=== PATIENT | female | born 2005 | race Two or more races ===

== ENCOUNTER 2024-10-09 15:03 | Emergency (ER) | payer MEDICAID ==
[~2024-10-09] VITALS: Ht 154.9 cm; Wt 56.2 kg
[2024-10-09 16:11] LABS: Urine Bacteria None Seen /hpf (None Seen)
--- NOTE | 2024-10-09 16:39 | ED.PDOC ---
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 LMP was 2 weeks ago and is also experiencing nausea/vomiting. Denies any PMHx as well as abdominal pain, vaginal bleeding, headache, dizziness, diarrhea, fevers, chills. No other symptoms or modifying factors present at this time. pt smokes marijuana Chief Complaint: Urinary Time Seen by MD: 16:00 Reviewed Notes: Medications, Allergies Allergies: Coded Allergies: NO KNOWN ALLERGIES (Unverified , 10/09/24) Information Source: Patient Mode of Arrival: Ambulatory Timing: Days Prehospital treatment: None Severity: Moderate Vaginal Discharge: None Vaginal Lesions: None Vaginal Mass: None Last Consensual [place]: Months Associated Signs and Symptoms: N/V Past Medical History PAST MEDICAL HISTORY: Denies Surgical History: Denies all surgeries TURBINE ASSEMBLER History: No Pertinent TURBINE ASSEMBLER History Family History Family History: Reviewed,noncontributory to illness, No family hx of Cancer, No family hx of DM, No family hx of Heart ramu, No family hx of HTN, No family hx ofKidney ramu, No family hx of Liver ramu, No family hx of Lung ramu, No family hx of Stroke Social History Smoker: Cigarettes Alcohol: Denies ETOH Use Drugs: Marijuana Lives In: Home Constitutional: denies: chills, diaphoresis, fatigue, fever, malaise, sweats, weakness, others EENTM: denies: blurred vision, double vision, ear bleeding, ear discharge, ear drainage, ear pain, ear ringing, eye pain, eye redness, hearing loss, mouth pain, mouth swelling, nasal discharge, nose bleeding, nose congestion, nose pain, photophobia, tearing, throat pain, throat swelling, voice changes, others Respiratory: denies: cough, hemoptysis, orthopnea, SOB at rest, shortness of breath, SOB with excertion, stridor, wheezing, others Cardiovascular: denies: chest pain, dizzy spells, diaphoresis, Dyspnea on exertion, edema, irregular heart beat, left arm pain, lightheadedness, palpitations, PND, syncope, others Gastrointestinal: reports: nausea, vomiting; denies: abdomen distended, abdominal pain, blood streaked bowels, constipated, diarrhea, dysphagia, difficulty swallowing, hematemesis, melena, poor appetite, poor fluid intake, rectal bleeding, rectal pain, others Genitourinary: reports: ; denies: abnormal vagina bleeding, burning, dyspareunia, dysuria, flank pain, frequency, hematuria, incontinence, pain, vagina discharge, urgency, others Neurological: denies: dizziness, fainting, headache, left sided numbness, left sided weakness, numbness, paresthesia, pre-existing deficit, right sided numbness, right sided weakness, seizure, speech problems, tingling, tremors, weakness, others Musculoskeletal: denies: back pain, gout, joint pain, joint swelling, muscle pain, muscle stiffness, neck pain, others Integumetry: denies: bruises, change in color, change in hair/nails, dryness, laceration, lesions, lumps, rash, wounds, others Allergic/Immunocompromised: denies: Difficulty Healing, Frequent Infections, Hives, Itching, others Hematologic/Lymphatic: denies: anemia, blood clots, easy bleeding, easy bruising, swollen glands, others Endocrine: denies: excessive hunger, excessive sweating, excessive thirst, excessive urination, flushing, intolerance to cold, intolerance to heat, unexplained weight gain, unexplained weight loss, others Psychiatric: denies: anxiety, bipolar disorder, depression, hopeless, panic disorder, schizophrenia, sleepless, suicidal, others All Other Systems: Reviewed and Negative Physical Exam General Appearance: No Apparent Distress, Normal HEENT: Normal ENT Inspection, Pharynx Normal, TMs Normal Neck: Full Range of Motion, Non-Tender, Normal, Normal Inspection Respiratory: Chest Non-Tender, Lungs Clear, No Accessory Muscle Use, No Respiratory Distress, Normal Breath Sounds Cardiovascular: No Edema, No JVD, No Murmur, No Gallop, Normal Peripheral Pulses, Regular Rate/Rhythm Breast Exam: Deferred Gastrointestinal: No Organomegaly, Non Tender, No Pulsatile Mass, Normal Bowel Sounds, Soft Genitalia: Deferred Pelvic: Deferred Rectal: Deferred Extremities: No calf tenderness, Normal capillary refill, Normal inspection, Normal range of motion, Non-tender, No pedal edema Musculoskeletal : Apperance: Normal Neurologic: Alert, environmental compliance inspector II-XII nml as Tested, No Motor Deficits, Normal Affect, Normal Mood, No Sensory Deficits Cerebellar Function: Normal Reflexes: Normal Skin: Dry, Normal Color, Warm Lymphatic: No Adenopathy Was a procedure done? Was a procedure done?: No Differential Diagnosis (TURBINE ASSEMBLER) Vaginal Bleeding: - Complete, - Incomplete, - Inevitable, - Missed, - Threatened, Dysmenorrhea, Ectopic Comments CHS, viral syndrome, gastroenteritis, idaeus X-Ray, Labs, Meds, VS Vital Signs Date Time Temp Pulse Resp B/P (MAP) Pulse Ox O2 Delivery O2 Flow Rate FiO2 10/09/24 15:04 98.7 100 20 118/68 (85) 98 98.7 Lab Test 10/09/24 16:10 10/09/24 15:50 Range/Units Urine Test Negative Negative Urine Color Dark-yellow Yellow Urine Clarity Ex.turbid Clear Urine pH 6.5 5.0-9.0 Urine Specific [place] 1.027 1.001-1.035 Urine Protein 3+ H Negative Urine Ketones 1+ H Negative Urine Blood 3+ H Negative /uL Urine Nitrite 2+ H Negative Urine Bilirubin 2+ H Negative Urine Urobilinogen 6 Negative mg/dL Urine Leukocyte Esterase 3+ Negative /uL Urine RBC 879 0 - 4 /hpf Urine WBC Clumps Present None Seen /hpf Urine Microscopic WBC 1466 H 0-5 /HPF Urine Squamous Epithelial Cells Mod <5 /hpf Urine Bacteria None seen None Seen /hpf Urine Mucus Moderate None Seen Urine Glucose Normal Normal mg/dL Time of 1ST Reevaluation: 16:30 Reevaluation 1ST: Unchanged Patient Education/Counseling: Diagnosis, Treatment, Prognosis Family Education/Counseling: No Family Present Departure 1 Departure Time of Disposition: 17:38 Impression: Primary Impression: Nausea Additional Impressions: UTI (urinary tract infection) Marijuana abuse Disposition: 01 HOME / SELF CARE / HOMELESS Condition: Good e-Prescriptions Ondansetron Odt 4MG Tab (ZOFRAN PO) 4 Mg Tb 4 MG PO Q6HP PRN for 3 Days, #12 TAB ODT TAB-DISSOLVE IN MOUTH, THEN SWALLOW Prov: NICOLLE POSADA MD 10/09/24 Cephalexin Monohydrate (Cephalexin) 500 Mg Tab 1 TAB PO QID, #40 TAB Prov: NICOLLE POSADA MD 10/09/24 Discharged With: Self, Relative (Mother) Critical Care Note Critical Care Time?: No Stability Stability form required: No I personally scribed for NICOLLE POSADA MD ([email or web address]) on 10/09/24 at 16:39. Electronically submitted by Veronica [email or web address]). NICOLLE POSADA MD October 09, 2024 16:39
[2024-10-09 16:54] LABS: Urine Blood 3+ /uL (Negative); Urine Clarity Ex.Turbid (Clear); Urine Color Dark-Yellow (Yellow); Urine Mucus MODERATE (None Seen); Urine Protein, UAD 3+ (Negative); Urine Specific Gravity 1.027 (1.001-1.035); Urine Squamous Epithelial Cell MOD /hpf (<5); Urine Urobilinogen 6 mg/dL (Negative); Urine WBC 1466 /HPF (0-5); Urine WBC Clumps PRESENT /hpf (None Seen); Urine pH 6.5 (5.0-9.0)
[2024-10-09] MEDS ORDERED: ZOFR4T PO (17:39)
[2024-10-09] MEDS ORDERED: CEPH500T PO (17:39)
[2024-10-09] MEDS: CEPHALEXIN 250 MG CAP PO ONE (20:09)
[2024-10-09 20:13] VITALS: BP 117/71; PULSE 55; RESP 18; TEMP 98.2; O2SAT 100
== END 2024-10-09 20:21 | disposition home or self-care (01) ==
LOC: ER 15:09
DX: N39.0 Urinary tract infection, site not specified (principal); R11.2 Nausea with vomiting, unspecified; F12.10 Cannabis abuse, uncomplicated; F17.210 Nicotine dependence, cigarettes, uncomplicated
CPT/HCPCS: 81001; 81025

== ENCOUNTER 2025-01-02 13:51 | Inpatient (IN) | payer MEDICAID ==
[~2025-01-02] VITALS: Ht 149.9 cm; Wt 50.0 kg
[~2025-01-02 13:51] MED LIST: CEPH500T PO; ZOFR4T PO
--- NOTE | 2025-01-02 14:12 | ED.PDOC ---
SOB-HPI HPI Comments 19-year-old female presents here with shortness of breath. She states this has been occurring for some time but occurring more frequently recently. She states that this morning she woke up 8:00 a.m. and 10 minutes later she began to have this shortness of breath. She states she is unable to take a deep breath and associated chest discomfort with radiates to the right arm. She states it does go away by itself she has not taken any medication. She states a year ago she was diagnosed with hyperthyroidism but then she went to another provider recently and they told her she does not have hypothyroidism. She does state she has lost 40 lb in the last several months. She does have a known history of panic attacks but states this does not feel like panic attack. She reports positive palpitations. She states she has been drinking plenty of water. Denies any recent cough cold runny nose fever or chills. Patient declines any unilateral leg swelling. She is not on oral contraceptive pills. She has not had any recent bedrest long flights. She does note that she drives [address]. Chief Complaint: Shortness of Breath Time Seen by MD: 13:57 Reviewed notes: Medications, Allergies Information Source: Patient Mode of Arrival: Ambulatory Brought in by: self Past Medical History PAST MEDICAL HISTORY: Thyroid Surgical History: Denies all surgeries ROAD SUPERVISOR OF ENGINES History: No Pertinent ROAD SUPERVISOR OF ENGINES History Family History Family History: Reviewed,noncontributory to illness, No family hx of Cancer, No family hx of DM, No family hx of Heart ramu, No family hx of HTN, No family hx ofKidney ramu, No family hx of Liver ramu, No family hx of Lung ramu, No family hx of Stroke Social History Smoker: Cigarettes Alcohol: Denies ETOH Use Drugs: Marijuana Lives In: Home Constitutional: denies: chills, diaphoresis, fatigue, fever, malaise, sweats, weakness, others EENTM: denies: blurred vision, double vision, ear bleeding, ear discharge, ear drainage, ear pain, ear ringing, eye pain, eye redness, hearing loss, mouth pain, mouth swelling, nasal discharge, nose bleeding, nose congestion, nose pain, photophobia, tearing, throat pain, throat swelling, voice changes, others Respiratory: reports: shortness of breath; denies: cough, hemoptysis, orthopnea, SOB at rest, SOB with excertion, stridor, wheezing, others Cardiovascular: reports: palpitations; denies: chest pain, dizzy spells, diaphoresis, Dyspnea on exertion, edema, irregular heart beat, left arm pain, lightheadedness, PND, syncope, others Gastrointestinal: denies: abdomen distended, abdominal pain, blood streaked bowels, constipated, diarrhea, dysphagia, difficulty swallowing, hematemesis, melena, nausea, poor appetite, poor fluid intake, rectal bleeding, rectal pain, vomiting, others Genitourinary: denies: abnormal vagina bleeding, burning, dyspareunia, dysuria, flank pain, frequency, hematuria, incontinence, pain, , vagina discharge, urgency, others Neurological: denies: dizziness, fainting, headache, left sided numbness, left sided weakness, numbness, paresthesia, pre-existing deficit, right sided numbness, right sided weakness, seizure, speech problems, tingling, tremors, weakness, others Musculoskeletal: denies: back pain, gout, joint pain, joint swelling, muscle pain, muscle stiffness, neck pain, others Integumetry: denies: bruises, change in color, change in hair/nails, dryness, laceration, lesions, lumps, rash, wounds, others Allergic/Immunocompromised: denies: Difficulty Healing, Frequent Infections, Hives, Itching, others Hematologic/Lymphatic: denies: anemia, blood clots, easy bleeding, easy bruising, swollen glands, others Endocrine: denies: excessive hunger, excessive sweating, excessive thirst, excessive urination, flushing, intolerance to cold, intolerance to heat, unexplained weight gain, unexplained weight loss, others Psychiatric: denies: anxiety, bipolar disorder, depression, hopeless, panic disorder, schizophrenia, sleepless, suicidal, others All Other Systems: Reviewed and Negative Physical Exam General Appearance: Mild Distress, Normal, Thin, Other (Appears anxious) HEENT: Normal ENT Inspection, Pharynx Normal, TMs Normal Neck: Full Range of Motion, Non-Tender, Normal, Normal Inspection Respiratory: Chest Non-Tender, Lungs Clear, No Accessory Muscle Use, No Respiratory Distress, Normal Breath Sounds Cardiovascular: No Edema, No JVD, No Murmur, No Gallop, Normal Peripheral Pulses, Regular Rate/Rhythm Breast Exam: Deferred Gastrointestinal: No Organomegaly, Non Tender, No Pulsatile Mass, Normal Bowel Sounds, Soft Genitalia: Deferred Pelvic: Deferred Rectal: Deferred Extremities: No calf tenderness, Normal capillary refill, Normal inspection, Normal range of motion, Non-tender, No pedal edema Musculoskeletal : Apperance: Normal Neurologic: Alert, blow machine tender starch spraying II-XII nml as Tested, No Motor Deficits, Normal Affect, Normal Mood, No Sensory Deficits Cerebellar Function: Normal Reflexes: Normal Skin: Dry, Normal Color, Warm Lymphatic: No Adenopathy EKG EKG : Comments Sinus rhythm rate of [address] changes Was a procedure done? Was a procedure done?: No Differential Dx Differential Diagnosis: Anxiety, Dysrhythmia, Panic Attack, PSVT, Pulmonary Embolism, URI X-Ray, Labs, Meds, VS Vital Signs Date Time Temp Pulse Resp B/P (MAP) Pulse Ox O2 Delivery O2 Flow Rate FiO2 01/02/25 14:10 61 01/02/25 13:53 97.5 60 18 117/70 100 97.5 Lab Test 01/02/25 15:50 01/02/25 14:48 Range/Units Troponin I High Sensitivity < 3 L < 3 L </=34 ng/L White Blood Count 6.9 4.4-10.8 10^3/uL Red Blood Count 4.42 4.0-5.20 10^6/uL Hemoglobin 14.0 12.2-16.2 g/dL Hematocrit 39.4 36.0-46.0 % Mean Corpuscular Volume 89.2 80.0-100.0 fL Mean Corpuscular Hemoglobin 31.6 28.0-32.0 pg Mean Corpuscular Hemoglobin Concent 35.4 32.0-36.0 g/dL Red Cell Distribution Width 14.1 11.8-14.3 % Platelet Count 314 140-450 10^3/uL Mean Platelet Volume 7.4 6.9-10.8 fL Neutrophils (%) (Auto) 52.1 37.0-80.0 % Lymphocytes (%) (Auto) 38.0 10.0-50.0 % Monocytes (%) (Auto) 8.4 0.0-12.0 % Eosinophils (%) (Auto) 1.1 0.0-7.0 % Basophils (%) (Auto) 0.4 0.0-2.0 % Neutrophils # (Auto) 3.6 1.6-8.6 10 ^3/uL Lymphocytes # (Auto) 2.6 0.4-5.4 10 ^3/uL Monocytes # (Auto) 0.6 0-1.3 10 ^3/uL Eosinophils # (Auto) 0.1 0-0.8 10 ^3/uL Basophils # (Auto) 0 0-0.2 10 ^3/uL Nucleated Red Blood Cells 0.1 % D-Dimer, Quantitative < 0.19 0.0-0.49 mg/L FEU Sodium Level 139 136-145 mmol/L Potassium Level 3.8 3.5-5.1 mmol/L Chloride Level 104 98-107 mmol/L Carbon Dioxide Level 25 20-31 mmol/L Anion Gap 10 5-15 Blood Urea Nitrogen 8 L 9-23 mg/dL Creatinine 0.88 0.550-1.02 mg/dL Glomerular Filtration Rate Calc 96 >90 mL/min BUN/Creatinine Ratio 9.1 L 10.0-20.0 Serum Glucose 88 74-106 mg/dL Calcium Level 9.6 8.7-10.4 mg/dL Thyroid Stimulating Hormone (TSH) 1.43 0.55-4.78 uIU/mL Free Thyroxine (T4) Calculated Pending [place] [id number] Ph: [phone] DIAGNOSTIC IMAGING Diagnostic Imaging Report : [id number] Signed PATIENT: GERARDO TOBARACCT: [id number] UNIT: [id number] : 2005 LOC: ER ROOM / BED: / AGE / SEX: 19 / F ADM STATUS: REG ER SERVICE 1417 ORDERING PHYSICIAN: JOSEFA MEIER MD PROCEDURE(s): CXR2 - CHEST TWO VIEWS ROUTINE REASON: cp ORDER NUMBER(s): [id number], ACCESSION NUMBER(s): [id number] XY CHEST TWO VIEWS ROUTINE CLINICAL HISTORY: cp COMPARISON: None TECHNIQUE: Frontal and lateral view of the chest was obtained FINDINGS: Lines and Tubes: None Lungs: No focal consolidation. Pleura: No effusion. No pneumothorax. Cardiomediastinal contours: Unremarkable Bones: No acute osseous abnormality. IMPRESSION: No acute cardiopulmonary disease. ATED BY: SHELLEY BARNARD DO DICTATED DATE/TIME: 01/02/25 1506 SIGNED BY: SHELLEY BARNARD DO SIGNED DATE/TIME: 01/02/25 1506 19-year-old female presents here with shortness of breath that occurs proximally 10 minutes upon awakening. At this time chest x-ray has been done which is unremarkable. Considered possible PE however I have do have a low suspicion and her D-dimer is negative. She is saturating well today. Considered possible anxiety. At this time no evidence of pneumonia or pneumothorax. Blood work has been done which is normal CBC BMP and troponin. D-dimer also negative. TSH is within normal limits. Free T4 is pending. Additionally I re-evaluated the patient and at that time she states she has had a 40 lb weight loss and it is because she has not been able to eat or drank. In questioning her more she states the vomiting happens upon wakening in the morning. She has follow up with her primary care physician and has seen a PA/MP there and she advised they only keep checking her thyroid level. I offered her a CT of the brain with contrast as well as a CT abdomen pelvis for evaluation but she prefers to have it done outpatient. On discharge paperwork I have written a note to provider fo additional testing be done outpatient. Advised patient if she is unable to get care in timely manner to please return back to the ER. Patient agreeable.. I have sent a prescription for Zofran to her pharmacy. Time of 1ST Reevaluation: 14:30 Reevaluation 1ST: Unchanged Patient Education/Counseling: Diagnosis, Treatment Family Education/Counseling: No Family Present SEPSIS Sepsis Screen Date sepsis recognized/suspect: Jan 02, 2025 Time Sepsis recognized/suspect: 1359 Recent Procedure: No On Antibiotic Therapy: No Respiratory Rate >20: No Heart Rate >90: No Temp<36 C (96.8 F) or >38.3 C: No SBP <90 or MAP <65 mmHG: No New Acute Mental Status Change: No Is the patient on CPAP, BIPAP,: No Physician Orders Chest Two Views Routine (01/02/25 14:17) Electrocardigram (01/02/25 15:17) Free T4 (Free Thyroxine) (01/02/25 14:19) Test, Urine (01/02/25 17:00) Head Contrast Only (01/02/25 17:01) Ct Ab Pel With Iv Con Only (01/02/25 17:01) Vital Signs Date Time Temp Pulse Resp B/P (MAP) Pulse Ox O2 Delivery O2 Flow Rate FiO2 01/02/25 14:10 61 01/02/25 13:53 97.5 60 18 117/70 100 97.5 Laboratory Tests Test 01/02/25 14:48 White Blood Count 6.9 10^3/uL (4.4-10.8) Departure 1 Departure Time of Disposition: 17:08 Impression: Primary Impression: Shortness of breath Additional Impressions: Weight loss, abnormal Vomiting Qualified Codes: R11.2 - Nausea with vomiting, unspecified Disposition: HOME / SELF CARE / HOMELESS Condition: Fair Additional Instructions: Please follow up with your primary care physician. You reported today that you are having vomiting 1st thing in the morning when you wake up, this is very concerning for a brain mass. Please request a CT with IV contrast or MRI of the brain. Additionally you reported 40 lb weight loss in the last 4 months, recommend Gastroenterology evaluation potentially with CT versus endoscopy/colonoscopy. If you are unable to get the care that you need, please return back to the ER. Additionally please return back to ER if your symptoms worsen or persist. e-Prescriptions Ondansetron Odt 4MG Tab (ZOFRAN PO) 4 Mg Tb 4 MG PO Q6HP PRN, #20 TAB ODT TAB-DISSOLVE IN MOUTH, THEN SWALLOW Prov: JOSEFA MEIER MD 01/02/25 Critical Care Note Critical Care Time?: No Stability Stability form required: No Heart Score Heart Score: Heart Score Response (Comments) Value History Slightly Suspicious 0 EKG Normal 0 Age <45 0 Risk Factors No known risk factors 0 Troponin Normal limit 0 Total 0 I personally scribed for JOSEFA MEIER MD ([email or web address]) on 01/02/25 at 14:30. Electronically submitted by Elver Monahan ([email or web address]). I personally scribed for JOSEFA MEIER MD ([email or web address]) on 01/02/25 at 14:53. Electronically submitted by Elver Monahan ([facility]). I personally scribed for JOSEFA MEIER MD ([email or web address]) on 01/02/25 at 15:12. Electronically submitted by Elver Monahan ([facility]). I personally scribed for JOSEFA MEIER MD ([email or web address]) on 01/02/25 at 15:19. Electronically submitted by Elver Monahan ([facility]). JOSEFA MEIER MD Jan 02, 2025 14:12
--- NOTE | 2025-01-02 14:19 | ECG ---
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
--- NOTE | 2025-01-02 15:08 | DVH ---
XY CHEST TWO VIEWS ROUTINE CLINICAL HISTORY: cp COMPARISON: None TECHNIQUE: Frontal and lateral view of the chest was obtained FINDINGS: Lines and Tubes: None Lungs: No focal consolidation. Pleura: No effusion. No pneumothorax. Cardiomediastinal contours: Unremarkable Bones: No acute osseous abnormality. IMPRESSION: No acute cardiopulmonary disease.
[2025-01-02 15:18] LABS: Hematocrit 39.4 % (36.0-46.0); Hemoglobin 14.0 g/dL (12.2-16.2); Mean Corpuscular Hemoglobin 31.6 pg (28.0-32.0); Mean Corpuscular Volume 89.2 fL (80.0-100.0); Nucleated Red Blood Cells % 0.1 %
[2025-01-02 15:20] LABS: Chloride 104 mmol/L (98-107); Potassium 3.8 mmol/L (3.5-5.1); Sodium 139 mmol/L (136-145)
[2025-01-02 15:21] LABS: Anion Gap 10 (5-15); Calcium 9.6 mg/dL (8.7-10.4); Carbon Dioxide 25 mmol/L (20-31)
[2025-01-02 15:26] LABS: BUN/Creatinine Ratio 9.1 (10.0-20.0); Blood Urea Nitrogen 8 mg/dL (9-23); Glucose 88 mg/dL (74-106)
[2025-01-02] MEDS ORDERED: ZOFR4T PO (17:00)
--- NOTE | 2025-01-02 20:25 | ED.PDOC ---
Altered Mental Status Chief Complaint: Shortness of Breath Time Seen by MD: 20:20 Allergies: Coded Allergies: NO KNOWN ALLERGIES (Unverified , 10/09/24) Home Meds Active Scripts Ondansetron Odt 4MG Tab (ZOFRAN PO) 4 Mg Tb, 4 MG PO Q6HP PRN, #20 TAB ODT TAB-DISSOLVE IN MOUTH, THEN SWALLOW Prov:JOSEFA MEIER MD 01/02/25 Ondansetron Odt 4MG Tab (ZOFRAN PO) 4 Mg Tb, 4 MG PO Q6HP PRN for 3 Days, #12 TAB ODT TAB-DISSOLVE IN MOUTH, THEN SWALLOW Prov:NICOLLE POSADA MD 10/09/24 Cephalexin Monohydrate (Cephalexin) 500 Mg Tab, 1 TAB PO QID, #40 TAB Prov:NICOLLE POSADA MD 10/09/24 Mode of Arrival: Ambulatory Past Medical History PAST MEDICAL HISTORY: Thyroid Surgical History: Denies all surgeries SENIOR RECRUITER History: No Pertinent SENIOR RECRUITER History Family History Family History: Reviewed,noncontributory to illness, No family hx of Cancer, No family hx of DM, No family hx of Heart ramu, No family hx of HTN, No family hx ofKidney ramu, No family hx of Liver ramu, No family hx of Lung ramu, No family hx of Stroke Social History Smoker: Cigarettes Alcohol: Denies ETOH Use Drugs: Marijuana Lives In: Home Physical Exam General Appearance: No Apparent Distress, Normal HEENT: Normal ENT Inspection, Pharynx Normal, TMs Normal Neck: Full Range of Motion, Non-Tender, Normal, Normal Inspection Respiratory: Chest Non-Tender, Lungs Clear, No Accessory Muscle Use, No Respiratory Distress, Normal Breath Sounds Cardiovascular: No Edema, No JVD, No Murmur, No Gallop, Normal Peripheral Pulses, Regular Rate/Rhythm Breast Exam: Deferred Gastrointestinal: No Organomegaly, Non Tender, No Pulsatile Mass, Normal Bowel Sounds, Soft Genitalia: Deferred Pelvic: Deferred Rectal: Deferred Extremities: No calf tenderness, Normal capillary refill, Normal inspection, Normal range of motion, Non-tender, No pedal edema Musculoskeletal : Apperance: Normal Neurologic: Alert, card maker II-XII nml as Tested, No Motor Deficits, Normal Affect, Normal Mood, No Sensory Deficits Cerebellar Function: Normal Reflexes: Normal Skin: Dry, Normal Color, Warm Lymphatic: No Adenopathy Was a procedure done? Was a procedure done?: No Differential Diagnosis (ALOC) Differential Diagnosis: Mass Lesion Other Differential Diagnosis cephalgia X-Ray, Labs, Meds, VS Vital Signs Date Time Temp Pulse Resp B/P (MAP) Pulse Ox O2 Delivery O2 Flow Rate FiO2 01/02/25 18:42 98.1 79 16 116/76 (89) 100 98.1 01/02/25 14:10 61 01/02/25 13:53 97.5 60 18 117/70 100 97.5 Lab Test 01/02/25 17:40 01/02/25 15:50 01/02/25 14:48 Range/Units Urine Test Negative Negative Troponin I High Sensitivity < 3 L < 3 L </=34 ng/L White Blood Count 6.9 4.4-10.8 10^3/uL Red Blood Count 4.42 4.0-5.20 10^6/uL Hemoglobin 14.0 12.2-16.2 g/dL Hematocrit 39.4 36.0-46.0 % Mean Corpuscular Volume 89.2 80.0-100.0 fL Mean Corpuscular Hemoglobin 31.6 28.0-32.0 pg Mean Corpuscular Hemoglobin Concent 35.4 32.0-36.0 g/dL Red Cell Distribution Width 14.1 11.8-14.3 % Platelet Count 314 140-450 10^3/uL Mean Platelet Volume 7.4 6.9-10.8 fL Neutrophils (%) (Auto) 52.1 37.0-80.0 % Lymphocytes (%) (Auto) 38.0 10.0-50.0 % Monocytes (%) (Auto) 8.4 0.0-12.0 % Eosinophils (%) (Auto) 1.1 0.0-7.0 % Basophils (%) (Auto) 0.4 0.0-2.0 % Neutrophils # (Auto) 3.6 1.6-8.6 10 ^3/uL Lymphocytes # (Auto) 2.6 0.4-5.4 10 ^3/uL Monocytes # (Auto) 0.6 0-1.3 10 ^3/uL Eosinophils # (Auto) 0.1 0-0.8 10 ^3/uL Basophils # (Auto) 0 0-0.2 10 ^3/uL Nucleated Red Blood Cells 0.1 % D-Dimer, Quantitative < 0.19 0.0-0.49 mg/L FEU Sodium Level 139 136-145 mmol/L Potassium Level 3.8 3.5-5.1 mmol/L Chloride Level 104 98-107 mmol/L Carbon Dioxide Level 25 20-31 mmol/L Anion Gap 10 5-15 Blood Urea Nitrogen 8 L 9-23 mg/dL Creatinine 0.88 0.550-1.02 mg/dL Glomerular Filtration Rate Calc 96 >90 mL/min BUN/Creatinine Ratio 9.1 L 10.0-20.0 Serum Glucose 88 74-106 mg/dL Calcium Level 9.6 8.7-10.4 mg/dL Thyroid Stimulating Hormone (TSH) 1.43 0.55-4.78 uIU/mL Free Thyroxine (T4) Calculated Pending Time of 1ST Reevaluation: 17:08 Reevaluation 1ST: Unchanged Patient Education/Counseling: Diagnosis, Treatment, Prognosis, Need For Follow Up Family Education/Counseling: Diagnosis, Treatment, Prognosis, Need For Follow Up Comments Patient reported to Dr. Meier that she has been losing weight having morning headaches. Dr. Perdomo was concerned about a malignancy in her order additional CAT scans. However there is a significant delay in getting these tests done. In the meantime patient continues to remain in a stable condition without any new symptoms. Dr. Meier has spoke to her about admitting her for further workups which patient declined initially. Now patient is wanting to be admitted for further workups for the progressive weight loss and new onset of headaches SEPSIS Sepsis Screen Date sepsis recognized/suspect: Jan 02, 2025 Time Sepsis recognized/suspect: 1359 Recent Procedure: No On Antibiotic Therapy: No Respiratory Rate >20: No Heart Rate >90: No Temp<36 C (96.8 F) or >38.3 C: No SBP <90 or MAP <65 mmHG: No New Acute Mental Status Change: No Is the patient on CPAP, BIPAP,: No Physician Orders Chest Two Views Routine (01/02/25 14:17) Electrocardigram (01/02/25 15:17) Free T4 (Free Thyroxine) (01/02/25 14:19) Head Contrast Only (01/02/25 17:01) Ct Ab Pel With Iv Con Only (01/02/25 17:01) Vital Signs Date Time Temp Pulse Resp B/P (MAP) Pulse Ox O2 Delivery O2 Flow Rate FiO2 01/02/25 18:42 98.1 79 16 116/76 (89) 100 98.1 01/02/25 14:10 61 01/02/25 13:53 97.5 60 18 117/70 100 97.5 Laboratory Tests Test 01/02/25 14:48 White Blood Count 6.9 10^3/uL (4.4-10.8) Departure 1 Departure Time of Disposition: 17:08 Impression: Primary Impression: Shortness of breath Additional Impressions: Vomiting Qualified Codes: R11.2 - Nausea with vomiting, unspecified Weight loss, abnormal Disposition: ADMITTED INPATIENT Admit to: Med Surg Condition: Stable Additional Instructions: Please follow up with your primary care physician. You reported today that you are having vomiting 1st thing in the morning when you wake up, this is very concerning for a brain mass. Please request a CT with IV contrast or MRI of the brain. Additionally you reported 40 lb weight loss in the last 4 months, melissa mmend Gastroenterology evaluation potentially with CT versus endoscopy/colonoscopy. If you are unable to get the care that you need, please return back to the ER. Additionally please return back to ER if your symptoms worsen or persist. e-Prescriptions Ondansetron Odt 4MG Tab (ZOFRAN PO) 4 Mg Tb 4 MG PO Q6HP PRN, #20 TAB ODT TAB-DISSOLVE IN MOUTH, THEN SWALLOW Prov: JOSEFA MEIER MD 01/02/25 Critical Care Note Critical Care Time?: Yes (55 min-critical care time only) Critical care comment: Due to concerns for patients condition deteriorating, the care required my highest level of attention and readiness to intervene. I assessed the patient, reviewed the medical records, ordered the appropriate tests and treatments, then reassessed for results and responsiveness. I communicated with medical personnel and consultants and formulated a plan of care. Total critical care time excludes any procedures Stability Stability form required: NICOLLE Mosqueda MD Jan 02, 2025 20:25
[2025-01-02] MEDS ORDERED: ACETAMINOPHEN 325 MG TAB PO PRN (21:45)
[2025-01-02] MEDS ORDERED: HYDROcodone-ACET 5/325MG TAB PO PRN (21:45)
[2025-01-02] MEDS ORDERED: ONDANSETRON HCL 4 MG/2 ML VIAL IV PRN (21:45)
[2025-01-02] MEDS: IOHEXOL 300 MG/ML 100ML BOTTLE IJ ONE (21:46)
--- NOTE | 2025-01-02 22:03 | DVH ---
EXAM: CT HEAD CONTRAST ONLY INDICATION: ro brain tumor TECHNIQUE: CT of the head without intravenous contrast. Radiation Dose Information: CT Dose: CTDI volume is 53.78 mGy. Dose-length product is 1059.75 mGy*cm Omnipaque 300 : 75 mL. The dose indicators for CT are the volume Computed Tomography (CT) Dose Index (CTDIvol) and the Dose Length Product (DLP), and are measured in units of mGy and mGy-cm, respectively. These indicators are not patient dose, but values generated from the CT scanner acquisition factors. The report includes radiation exposure data for exposures received during this examination. COMPARISON: None FINDINGS: There is no evidence of acute intracranial hemorrhage, extra-axial collection, mass effect, midline s hift, herniation or hydrocephalus. The ventricles, sulci and cisterns are age appropriate. The ceja-white differentiation is intact. Patchy periventricular and subcortical white matter hypoattenuation is nonspecific but may be related to small vessel ischemic disease. The visualized paranasal sinuses and mastoid air cells are clear. The surrounding soft tissues and osseous structures are unremarkable. IMPRESSION: 1. No mass effect. 2. No enhancing intracranial masses. 3. Without noncontrast CT head can not exclude intracranial hemorrhage.
--- NOTE | 2025-01-02 22:12 | DVH ---
Exam: CT CT AB PEL WITH IV CON ONLY History: Abdominal pain Comparison Study: None TECHNIQUE: A digital pattern grader image was obtained. During the uneventful, intravenous administration of c ontrast material, multislice data acquisition was obtained through the abdomen and pelvis. The data s et was subsequently reconstructed into multiplanar reformats. RADIATION DOSE: CTDI vol 5.29 mGy. DLP 299.9 mGy.cm Findings: Liver: Too small to characterize right hepatic lesion. Spleen: Unremarkable. Pancreas: Unremarkable. Gallbladder: Unremarkable. Adrenals: Unremarkable Kidneys: Unremarkable. Pelvic Viscera: Contrast opacifies the posterior aspect of the urinary bladder. Vasculature: Unremarkable. Retroperitoneum: Trace pelvic ascites. Bowel: No bowel obstruction. Nonspecific fluid-filled regions of small bowel with mild wall hyperemia . The appendix is normal. Musculoskeletal: Unremarkable. Soft tissues: Unremarkable Lungs: The lung bases are clear. Impression: 1. Findings as above raising the possibility of a mild enteritis in the appropriate clinical setting. 2. Incidental findings as detailed.
--- NOTE | 2025-01-02 22:21 | DVHHP2 ---
History of Present Illness Reason for Visit: Acute respiratory distress History of Present Illness The patient is a 19-year-old female with past medical history of thyroid disease who presented to [facility] ED with complaint of shortness of breaths. Patient reports she has been experiencing intermittent shortness of breaths for the past couple of days, unable to take a deep breaths, associated with chest discomfort, radiates to the right arm, palpitations. She reports that a year ago she was diagnosed with hypothyroidism on medication, but then she went to another provider recently and they told her she does not have hypothyroidism, currently not on any medication. She does state she has lost 40 lb in the last several months. Patient was seen and evaluated in the ED, laboratory data shows WBC 6.9, platelets 314, sodium 139, potassium 3.8, BUN 8, creatinine 0.88, GFR 96, glucose 88, calcium 9.6, troponin < 3, TSH 1.43, blood pressure 116/76, heart rate 79, temperature 98.1 F, O2 saturation 99% on oxygen. Chest x-ray showed no acute cardiopulmonary disease. Please see medication orders section in the computer. On my assessment, patient denies chest pain, no headache, no dizziness, no shortness of breath at this moment, no abdominal pain, no diarrhea, no nausea, no vomiting, no fever, no chills. Patient was admitted for further evaluation and medical management. Past Medical History Thyroid disease Past Surgical History Denies all surgeries Family History Reviewed, noncontributory to the management of this case. Past Social History The patient lives at home, smokes cigarettes, denies alcohol use, uses marijuana. Review of Systems Constitutional: No: Fever, Chills, Sweats, Weakness, Malaise, Other Eyes: No: Pain, Vision change, Conjunctivae inflammation, Eyelid inflammation, Other, Redness ENT: No: Ear pain, Ear discharge, Nose pain, Nose discharge, Nose congestion, Mouth pain, Mouth swelling, Throat pain, Throat swelling, Other Respiratory: Shortness of breath; No: Cough, Dry, SOB with excertion, Wheezing, Hemoptysis, Pleuritic Pain, Sputum, Wheezing, Other Cardiovascular: Palpitations; No: Chest Pain, Orthopnea, Paroxysmal Noc. Dyspnea, Edema, Lt Headedness, Other Gastrointestinal: Nausea, Vomiting; No: Abdominal Pain, Diarrhea, Constipation, Melena, Hematochezia, Other Genitourinary: No Dysuria, No Frequency, No Incontinence, No Hematuria, No Retention, No Other Musculoskeletal: No: other, neck pain, shoulder pain, arm pain, back pain, hand pain, leg pain, foot pain Skin: No: Rash, Lesions, Jaundice, Bruising, Other Neurological: No: Weakness, Numbness, Incoordination, Change in speech, Confusion, Seizures, Other Allergies: Coded Allergies: NO KNOWN ALLERGIES (Unverified , 10/09/24) Medications Current Medications Medications Dose Ordered Sig/Tabby Route Start Time Stop Time Status Last Admin Dose Admin Sodium Chloride 1,000 ml @ 60 mls/hr [id number] IV 01/02/25 21:45 Acetaminophen/ Hydrocodone Bitart 1 tab Q4HP PRN PO 01/02/25 21:45 Ondansetron HCl 4 mg Q4HP PRN IV 01/02/25 21:45 Acetaminophen 650 mg Q6HP PRN PO 01/02/25 21:45 Exam Vital Signs Vital Signs Date Time Temp Pulse Resp B/P (MAP) Pulse Ox O2 Delivery O2 Flow Rate FiO2 01/02/25 18:42 98.1 79 16 116/76 (89) 100 98.1 General Appearance: Alert, Oriented X3, Cooperative, No acute distress HEENT: Atraumatic, PERRLA, EOMI, Mucous membr. moist/pink Respiratory: Clear to auscultation, Normal air movement Cardiovascular: Regular rate, Normal S1, Normal S2, No murmurs Abdominal: Normal bowel sounds, Soft, No hepatospenomegaly, No masses, Other (Reports tenderness) Extremities: No clubbing, No cyanosis, No edema, Normal pulses, No tenderness/swelling Skin: No rashes, No breakdown, No significant lesion Neuro: Normal gait, Normal speech, Strength at 5/5 X4 ext, Normal tone, Sensation intact, Cranial nerves 3-12 NL, Reflexes 2+ Psych/Mental Status: Mental status NL, Mood NL Labs/Xrays Labs Test 01/02/25 17:40 01/02/25 15:50 01/02/25 14:48 Range/Units Urine Test Negative Negative Troponin I High Sensitivity < 3 L </=34 ng/L White Blood Count 6.9 4.4-10.8 10^3/uL Red Blood Count 4.42 4.0-5.20 10^6/uL Hemoglobin 14.0 12.2-16.2 g/dL Hematocrit 39.4 36.0-46.0 % Mean Corpuscular Volume 89.2 80.0-100.0 fL Mean Corpuscular Hemoglobin 31.6 28.0-32.0 pg Mean Corpuscular Hemoglobin Concent 35.4 32.0-36.0 g/dL Red Cell Distribution Width 14.1 11.8-14.3 % Platelet Count 314 140-450 10^3/uL Mean Platelet Volume 7.4 6.9-10.8 fL Neutrophils (%) (Auto) 52.1 37.0-80.0 % Lymphocytes (%) (Auto) 38.0 10.0-50.0 % Monocytes (%) (Auto) 8.4 0.0-12.0 % Eosinophils (%) (Auto) 1.1 0.0-7.0 % Basophils (%) (Auto) 0.4 0.0-2.0 % Neutrophils # (Auto) 3.6 1.6-8.6 10 ^3/uL Lymphocytes # (Auto) 2.6 0.4-5.4 10 ^3/uL Monocytes # (Auto) 0.6 0-1.3 10 ^3/uL Eosinophils # (Auto) 0.1 0-0.8 10 ^3/uL Basophils # (Auto) 0 0-0.2 10 ^3/uL Nucleated Red Blood Cells 0.1 % D-Dimer, Quantitative < 0.19 0.0-0.49 mg/L FEU Sodium Level 139 136-145 mmol/L Potassium Level 3.8 3.5-5.1 mmol/L Chloride Level 104 98-107 mmol/L Carbon Dioxide Level 25 20-31 mmol/L Anion Gap 10 5-15 Blood Urea Nitrogen 8 L 9-23 mg/dL Creatinine 0.88 0.550-1.02 mg/dL Glomerular Filtration Rate Calc 96 >90 mL/min BUN/Creatinine Ratio 9.1 L 10.0-20.0 Serum Glucose 88 74-106 mg/dL Calcium Level 9.6 8.7-10.4 mg/dL Thyroid Stimulating Hormone (TSH) 1.43 0.55-4.78 uIU/mL PATIENT: GUADALUPE TOBARCODYACCT: [id number] UNIT: [id number] : 2005 LOC: ER ROOM / BED: / AGE / SEX: 19 / F ADM STATUS: REG ER SERVICE 1701 ORDERING PHYSICIAN: JOSEFA MEIER MD PROCEDURE(s): ABPLIV - CT AB PEL WITH IV CON ONLY REASON: ro mass ORDER NUMBER(s): [id number], ACCESSION NUMBER(s): [id number] Exam: CT CT AB PEL WITH IV CON ONLY History: Abdominal pain Comparison Study: None TECHNIQUE: A digital turn operator image was obtained. During the uneventful, intravenous administration of contrast material, multislice data acquisition was obtained through the abdomen and pelvis. The data set was subsequently reconstructed into multiplanar reformats. RADIATION DOSE: CTDI vol 5.29 mGy. DLP 299.9 mGy.cm Findings: Liver: Too small to characterize right hepatic lesion. Spleen: Unremarkable. Pancreas: Unremarkable. Gallbladder: Unremarkable. Adrenals: Unremarkable Kidneys: Unremarkable. Pelvic Viscera: Contrast opacifies the posterior aspect of the urinary bladder. Vasculature: Unremarkable. Retroperitoneum: Trace pelvic ascites. Bowel: No bowel obstruction. Nonspecific fluid-filled regions of small bowel with mild wall hyperemia. The appendix is normal. Musculoskeletal: Unremarkable. Soft tissues: Unremarkable Lungs: The lung bases are clear. Impression: 1. Findings as above raising the possibility of a mild enteritis in the appropriate clinical setting. 2. Incidental findings as detailed. ORDERING PHYSICIAN: JOSEFA MEIER MD PROCEDURE(s): HDWCT - HEAD CONTRAST ONLY REASON: ro brain tumor ORDER NUMBER(s): [id number], ACCESSION NUMBER(s): [id number] EXAM: CT HEAD CONTRAST ONLY INDICATION: ro brain tumor TECHNIQUE: CT of the head without intravenous contrast. Radiation Dose Information: CT Dose: CTDI volume is 53.78 mGy. Dose-length product is 1059.75 mGy*cm Omnipaque 300: 75 mL. The dose indicators for CT are the volume Computed Tomography (CT) Dose Index (CTDIvol) and the Dose Length Product (DLP), and are measured in units of mGy and mGy-cm, respectively. These indicators are not patient dose, but values generated from the CT scanner acquisition factors. The report includes radiation exposure data for exposures received during this examination. COMPARISON: None FINDINGS: There is no evidence of acute intracranial hemorrhage, extra-axial collection, mass effect, midline shift, herniation or hydrocephalus. The ventricles, sulci and cisterns are age appropriate. The ceja-white differentiation is intact. Patchy periventricular and subcortical white matter hypoattenuation is nonspecific but may be related to small vessel ischemic disease. The visualized paranasal sinuses and mastoid air cells are clear. The surrounding soft tissues and osseous structures are unremarkable. IMPRESSION: 1. No mass effect. 2. No enhancing intracranial masses. 3. Without noncontrast CT head can not exclude intracranial hemorrhage. ORDERING PHYSICIAN: JOSEFA MEIER MD PROCEDURE(s): CXR2 - CHEST TWO VIEWS ROUTINE REASON: cp ORDER NUMBER(s): [id number], ACCESSION NUMBER(s): [id number] CHEST TWO VIEWS ROUTINE CLINICAL HISTORY: cp COMPARISON: None TECHNIQUE: Frontal and lateral view of the chest was obtained FINDINGS: Lines and Tubes: None Lungs: No focal consolidation. Pleura: No effusion. No pneumothorax. Cardiomediastinal contours: Unremarkable Bones: No acute osseous abnormality. IMPRESSION: No acute cardiopulmonary disease. SEPSIS Sepsis Screen Date sepsis recognized/suspect: Jan 02, 2025 Time Sepsis recognized/suspect: 1359 Recent Procedure: No On Antibiotic Therapy: No Respiratory Rate >20: No Heart Rate >90: No Temp<36 C (96.8 F) or >38.3 C: No SBP <90 or MAP <65 mmHG: No New Acute Mental Status Change: No Is the patient on CPAP, BIPAP,: No Physician Orders Head Contrast Only (01/02/25 17:01) Ct Ab Pel With Iv Con Only (01/02/25 17:01) Allergies (01/02/25 21:39) Code Status (01/02/25 21:39) Sodium Chloride 0.9% (01/02/25 21:45) Oxygen Per Hour (01/02/25 21:39) Hydrocodone-Acet 5/325mg Tab (Porter 5/32 (01/02/25 21:45) Ondansetron Hcl (Zofran) (01/02/25 21:45) Complete Blood Count (01/03/25 04:00) Comprehensive Metabolic Panel (01/03/25 04:00) Condition: Serious (01/02/25 21:39) Acetaminophen Tablet (Tylenol Tablet) (01/02/25 21:45) Clear Liq Diet (01/03/25 Breakfast) Bedrest With Bathroom Privileg (01/02/25 21:39) Sequential Compression Device (01/02/25 ) Admit (01/02/25 22:19) Nitroglycerin Sublingual (Ntrostat Subli (01/02/25 22:30) Morphine Sulfate Injection (01/02/25 22:30) Stat Ekg For Chest Pain (01/02/25 22:19) Notify Md Of Changes From Base (01/02/25 22:19) [employer] For 24 Hours (01/02/25 22:19) Emergency Dysrhythmia Protocol (01/02/25 22:19) Rhythm Strips Once Every Shift (01/02/25 22:19) Oxygen By Nasal Cannula (01/02/25 22:19) Vital Signs Date Time Temp Pulse Resp B/P (MAP) Pulse Ox O2 Delivery O2 Flow Rate FiO2 01/02/25 18:42 98.1 79 16 116/76 (89) 100 98.1 Laboratory Tests Test 01/02/25 14:48 White Blood Count 6.9 10^3/uL (4.4-10.8) Assessment/Plan Assessment/Plan Acute respiratory distress Weight loss, abnormal Elevated TSH Nausea with vomiting, unspecified Plan 1. Admit to telemetry unit 2. Breathing treatment 3. Pain control management 4. Management of fluids and electrolytes 5. Consultation for hospitalist 6. Diagnostic tests chest x-ray 7. DVT prophylaxis-on SCDs 8. Repeat labs CBC, CMP in a.m. 9. Continue with current medical management 10. Treatment plan discussed with patient and RN. Patient verbalized understanding. Plan discussed with: Patient, Other (RN) My Orders Orders - NAIN DIAMOND DNP Procedure Category Date Status Time Allergies ANGIE 01/02/25 In Process 21:39 Code Status CODE 01/02/25 Transmitted 21:39 Sodium Chloride 0.9% PHA 01/02/25 In Process 21:45 Oxygen Per Hour RT 01/02/25 Transmitted 21:39 Hydrocodone-Acet PHA 01/02/25 In Process 5/325mg Tab (Porter 21:45 Ondansetron Hcl PHA 01/02/25 In Process (Zofran) 21:45 Complete Blood Count LAB 01/03/25 Verified 04:00 Comprehensive LAB 01/03/25 Verified Metabolic Panel 04:00 Condition: Serious ANGIE 01/02/25 In Process 21:[address] [facility] 01/02/25 In Process (Tylenol Tablet) 21:45 Clear Liq Diet DIET 01/03/25 Transmitted Breakfast Bedrest With Bathroom [facility] 01/02/25 In Process Privileg 21:39 Sequential [facility] 01/02/25 In Process Compression Device Admit ADMIT 01/02/25 Verified 22:[address] [facility] 01/02/25 Verified Sublingual (Ntrostat 22:[address] [facility] 01/02/25 Verified Injection 22:30 Stat Ekg For Chest [facility] 01/02/25 Verified Pain 22:19 Notify Md Of Changes [facility] 01/02/25 Verified From Base 22:19 [employer] For [facility] 01/02/25 Verified 24 Hours 22:19 Emergency Dysrhythmia [facility] 01/02/25 Verified Protocol 22:19 Rhythm Strips Once [facility] 01/02/25 Verified Every Shift 22:19 Oxygen By Nasal RT 01/02/25 Verified Cannula 22:19 Problem List: (1) Acute respiratory distress (2) Weight loss, abnormal (3) Elevated TSH (4) Nausea with vomiting, unspecified Date of Service: Jan 02, 2025 Billing Provider: NAIN DIAMOND DNP Common Visit Codes: [id number] INP/OBS CARE (HIGH) NAIN DIAMOND DNP Jan 02, 2025 22:21
[2025-01-02] MEDS ORDERED: NITROGLYCERIN 0.4 MG SL TAB SL PRN (22:30)
[2025-01-02] MEDS ORDERED: MORPHINE SULFATE INJ 2 MG/ml SYRG IV PRN (22:30)
[2025-01-02 22:50] VITALS: PULSE 89; RESP 19; O2SAT 96
[2025-01-03] MEDS: SODIUM CHLORIDE 0.9% 1,000 ML IV SCH (04:01)
[2025-01-03 05:26] LABS: Hematocrit 35.2 % (36.0-46.0); Hemoglobin 12.3 g/dL (12.2-16.2); Mean Corpuscular Hemoglobin 31.2 pg (28.0-32.0); Mean Corpuscular Volume 89.0 fL (80.0-100.0); Nucleated Red Blood Cells % 0.0 %
[2025-01-03 05:44] LABS: Alanine Aminotransferase 13 U/L (7-40); Albumin 4.4 g/dL (3.2-4.8); Alkaline Phosphatase 66 U/L (46-116); Anion Gap 8 (5-15); BUN/Creatinine Ratio 9.0 (10.0-20.0); Calcium 9.1 mg/dL (8.7-10.4); Carbon Dioxide 25 mmol/L (20-31); Chloride 106 mmol/L (98-107); Glucose 81 mg/dL (74-106); Potassium 3.6 mmol/L (3.5-5.1); Sodium 139 mmol/L (136-145); Total Protein 6.7 g/dL (5.7-8.2)
[2025-01-03 05:45] LABS: Bilirubin, Total 0.5 mg/dL (0.2-1.0); Blood Urea Nitrogen 7 mg/dL (9-23)
[2025-01-03 08:00] VITALS: TEMP 98.1
[2025-01-03 12:00] VITALS: BP 114/86; PULSE 64; RESP 15; O2SAT 99
--- NOTE | 2025-01-03 13:14 | DVHPN2 ---
Eyes: No Pain, No Vision change, No Conjunctivae inflammation, No Eyelid inflammation, No Other, No Redness ENT: No Ear pain, No Ear discharge, No Nose pain, No Nose discharge, No Nose congestion, No Mouth pain, No Mouth swelling, No Throat pain, No Throat swelling, No Other Cardiovascular: No Chest Pain; Palpitations; No Orthopnea, No Paroxysmal Noc. Dyspnea, No Edema, No Lt Headedness, No Other Respiratory: No Cough, No Dry; Shortness of breath; No SOB with excertion, No Wheezing, No Hemoptysis, No Pleuritic Pain, No Sputum, No Other Gastrointestinal: Nausea, Vomiting; No Abdominal Pain, No Diarrhea, No Constipation, No Melena, No Hematochezia, No Other Genitourinary: No Dysuria, No Frequency, No Incontinence, No Hematuria, No Retention, No Other Musculoskeletal: No other, No neck pain, No shoulder pain, No arm pain, No back pain, No hand pain, No leg pain, No foot pain Skin: No Rash, No Lesions, No Jaundice, No Bruising, No Other Objective Vitals Vital Signs Date Time Temp Pulse Resp B/P (MAP) Pulse Ox O2 Delivery O2 Flow Rate FiO2 01/03/25 12:00 64 01/03/25 12:00 15 114/86 (95) 99 01/03/25 08:00 98.1 98.1 01/03/25 07:25 Room Air* 0 21 Medications Current Medications Medications Dose Ordered Sig/Tabby Route Start Time Stop Time Status Last Admin Dose Admin Sodium Chloride 1,000 ml @ 60 mls/hr [id number] IV 01/02/25 21:45 01/03/25 04:01 60 MLS/HR Acetaminophen/ Hydrocodone Bitart 1 tab Q4HP PRN PO 01/02/25 21:45 Ondansetron HCl 4 mg Q4HP PRN IV 01/02/25 21:45 Acetaminophen 650 mg Q6HP PRN PO 01/02/25 21:45 Nitroglycerin 0.4 mg Q5MINP PRN SL 01/02/25 22:30 Morphine Sulfate 2 mg Q30M PRN IV 01/02/25 22:30 Laboratory Results Laboratory Tests 01/03/25 04:56 Chemistry Test 01/02/25 14:48 01/03/25 04:56 Calcium Level 9.6 mg/dL (8.7-10.4) 9.1 mg/dL (8.7-10.4) Albumin 4.4 g/dL (3.2-4.8) Total Protein 6.7 g/dL (5.7-8.2) Coagulation Test 01/02/25 14:48 D-Dimer, Quantitative < 0.19 mg/L FEU (0.0-0.49) LFT Test 01/03/25 04:56 Alanine Aminotransferase (ALT) 13 U/L (7-40) Alkaline Phosphatase 66 U/L (46-116) Aspartate Amino Transferase (AST) 18 U/L (13-40) Total Bilirubin 0.5 mg/dL (0.2-1.0) HgA1c, TSH Test 01/02/25 14:48 Thyroid Stimulating Hormone (TSH) 1.43 uIU/mL (0.55-4.78) Urinalysis Test 01/02/25 17:40 Urine Test Negative (Negative) LISA JACKSON MD Jan 03, 2025 13:14
--- NOTE | 2025-01-04 11:17 | DVHDS2 ---
Discharge Summary Date of Admission Jan 02, 2025 at 22:19 Date of Discharge: Jan 03, 2025 Admitting Diagnosis Acute respiratory distress Weight loss, abnormal Elevated TSH Nausea with vomiting, unspecified Labs/Diagnostic Data: Laboratory Results Test 01/03/25 04:56 01/02/25 17:40 01/02/25 15:50 01/02/25 14:48 White Blood Count 6.7 10^3/uL (4.4-10.8) Red Blood Count 3.96 10^6/uL (4.0-5.20) Hemoglobin 12.3 g/dL (12.2-16.2) Hematocrit 35.2 % (36.0-46.0) Mean Corpuscular Volume 89.0 fL (80.0-100.0) Mean Corpuscular Hemoglobin 31.2 pg (28.0-32.0) Mean Corpuscular Hemoglobin Concent 35.0 g/dL (32.0-36.0) Red Cell Distribution Width 14.0 % (11.8-14.3) Platelet Count 270 10^3/uL (140-450) Mean Platelet Volume 7.4 fL (6.9-10.8) Neutrophils (%) (Auto) 47.8 % (37.0-80.0) Lymphocytes (%) (Auto) 40.5 % (10.0-50.0) Monocytes (%) (Auto) 9.1 % (0.0-12.0) Eosinophils (%) (Auto) 2.3 % (0.0-7.0) Basophils (%) (Auto) 0.3 % (0.0-2.0) Neutrophils # (Auto) 3.2 10 ^3/uL (1.6-8.6) Lymphocytes # (Auto) 2.7 10 ^3/uL (0.4-5.4) Monocytes # (Auto) 0.6 10 ^3/uL (0-1.3) Eosinophils # (Auto) 0.2 10 ^3/uL (0-0.8) Basophils # (Auto) 0 10 ^3/uL (0-0.2) Nucleated Red Blood Cells 0.0 % Sodium Level 139 mmol/L (136-145) Potassium Level 3.6 mmol/L (3.5-5.1) Chloride Level 106 mmol/L (98-107) Carbon Dioxide Level 25 mmol/L (20-31) Anion Gap 8 (5-15) Blood Urea Nitrogen 7 mg/dL (9-23) Creatinine 0.78 mg/dL (0.550-1.02) Glomerular Filtration Rate Calc 111 mL/min (>90) BUN/Creatinine Ratio 9.0 (10.0-20.0) Serum Glucose 81 mg/dL (74-106) Calcium Level 9.1 mg/dL (8.7-10.4) Total Bilirubin 0.5 mg/dL (0.2-1.0) Aspartate Amino Transferase (AST) 18 U/L (13-40) Alanine Aminotransferase (ALT) 13 U/L (7-40) Alkaline Phosphatase 66 U/L (46-116) Total Protein 6.7 g/dL (5.7-8.2) Albumin 4.4 g/dL (3.2-4.8) Urine Test Negative (Negative) Troponin I High Sensitivity < 3 ng/L (</=34) D-Dimer, Quantitative < 0.19 mg/L FEU (0.0-0.49) Thyroid Stimulating Hormone (TSH) 1.43 uIU/mL (0.55-4.78) Other Laboratory Tests 01/03/25 04:56 Brief Hx & Hospital Course: This is a 19 years old female with past medical history of thyroid disease come to emergency department because severe shortness for breath. Patient had shortness for breath for couple day. She unable to take a deep breath. She does have some chest discomfort with shortness of the breath. The chest discomfort radiating to her right arm with heart palpitation. The patient was diagnosis with hypothyroidism and on medication. However she went to another PCP recently and told that she does not have hypothyroidism and currently was taking off thyroid medication. She also lost 40 lb in the last several months unintentionally. The patient was admitted. Workup was done for her respiratory distress and for her chest discomfort. CT head, abdomen pelvis was done showed no acute process except mild enteritis. TSH is elevated. The patient needs further workup. Patient however grew inpatient and decided to leave against medical advice. Patient was advised to stay for further workup especially for her weight loss in her shortness for breath and chest pain but she decided to leave against medical advice. The patient verbally understand the consequence of leaving without further workup can be multiple medical problem in the future or even but she still choose to leave against medical advice Physical exam: HEENT: Normocephalic atraumatic pupils equal react to light and accommodation. Extraocular muscles intact, conjunctiva pink, oropharynx moist, no thrush, no exudate. Lymphatic: No lymphadenopathy Cardiovascular exam: S1, S2 was heard. No murmurs, rubs, gallops Lung: Clear on auscultation bilaterally, no wheeze, rale, rhonchi. GI: Abdominal soft, nondistended, nontenderness, positive bowel sounds. Extremity: No crepitus, cyanosis, edema. Pedal pulses present bilateral. Full range of motion. Skin: Normal turgor, no rash. Psych: Alert, oriented x3. Neurology: No focal deficits, cranial nerve II to XII grossly intact. This medical document was created using an electronic medical record system with [employer] direct computerized dictation system. Although this document has been carefully reviewed, there may still be some phonetic and typographical errors. These areas are purely typographical due to imperfections of the software programs, and do not reflect any compromise in the patient's medical care. Condition at Discharge: Guarded Final Diagnosis/Problems List Acute respiratory distress Weight loss, abnormal Elevated TSH Nausea with vomiting, unspecified Discharge Disposition: AMA Discharge Instruct/Medications Scheduled Cephalexin Monohydrate (Cephalexin), 1 TAB PO QID Scheduled PRN Ondansetron Odt 4MG Tab (Zofran Po), 4 MG PO Q6HP PRN Ondansetron Odt 4MG Tab (Zofran Po), 4 MG PO Q6HP PRN Discharge Statement: "Patient was advised to return to the ER or call 911 if any headaches, dizziness, shortness of breath, chest pain, abdominal pain, bleeding, fevers, or worsening of medical condition. Patient was counseled about treatment plan, medications, possible side effects, patientverbalized understanding. All questions were answered to the best of my ability. This discharge took greater then 30 minutes in planning, reviewing documentation, counseling the patient, and discussing with other team members." ASSESSMENT ASSESSMENT Assessment Date of Service: Jan 03, 2025 Billing Provider: LISA JACKSON MD Common Visit Codes: 04433-YVO/OBS DISCH DAY >30min LISA JACKSON MD Jan 04, 2025 11:17
== END 2025-01-03 17:15 | disposition left against medical advice (07) | DRG 144 ==
LOC: ER 13:51 → OVERFLOW 22:19
PROVIDERS: ADMIT Nurse Practitioner Family; ATTEND Nurse Practitioner Family
DX: R06.03 Acute respiratory distress (principal); A08.4 Viral intestinal infection, unspecified; E03.9 Hypothyroidism, unspecified; Z53.29 Procedure and treatment not carried out because of patient's decision for other reasons; F17.210 Nicotine dependence, cigarettes, uncomplicated; Z79.2 Long term (current) use of antibiotics; Z79.899 Other long term (current) drug therapy
CPT/HCPCS: 36415; 70460; 71046; 74177; 80048; 80053; 81025; 84439; 84443; 84484; 85025; 85379; 93005; 96360; 99291; G0378